=== PATIENT | female | born 1990 | race Two or more races ===

== ENCOUNTER 2017-11-26 01:39 | Inpatient (IN) | payer MEDICAID ==
[2017-11-26] MEDS ORDERED: OXYTOCIN 20 UNIT in LR 1,000 ML IV PRN (02:43)
[2017-11-26] MEDS ORDERED: TERBUTALINE SULFATE 1 MG/ML VIAL IV PRN (02:43)
[2017-11-26] MEDS ORDERED: OLIVE OIL 118 ML BTL MISC PRN (02:43)
[2017-11-26] MEDS ORDERED: LR 1,000 ML IV PRN (02:43)
[2017-11-26] MEDS ORDERED: MISOPROSTOL 200 MCG TAB PR PRN (02:43)
[2017-11-26] MEDS ORDERED: EPSOM SALT 454 GM TP PRN (02:43)
[2017-11-26 03:08] LABS: PLATELET COUNT 128 10^3/uL (150-400)
--- NOTE | 2017-11-26 03:39 | PDGENHP ---
History and Physical - Chief Complaint Home transfer - Prolonged first stage - History of Present Illness Deidra is a 27 yo G1 at 40w2d by JESSICA of 11/24/17 by LMP c/w 20 wk US who arrived as non-urgent transfer early this AM from her home where she has been laboring with her nfl player (Alyssa Car) for the past 48 hrs. They report that her water did rupture grossly (confirmed w nitrazine) at 0300 on 11/24/17. No fevers or chills. Has now been 7cm since 1700 11/25/17 and ultimately transferring for potential augmentation and pain control. Reportedly uncomplicated first , GBS unknown but pt declines antibiotics. She did have an anatomy scan US at 20w1d - posterior placenta no previa, normal anatomy. JESSICA by US 11/29/17. Her TSH was reportedly abnormal at 21 but PNL otherwise normal. Last pap was 01/2015 and had "abnormal cells" with no f/u recommended per pt. Plan has been to repeat pap PP. Pt is a chiropractor herself. Has a h/o anemia. Declined aneuploidy screening. History Information - Allergies/Home Medication List Allergies/Adverse Reactions: No Known Allergies Allergy (Unverified 11/26/17 02:43) I have personally reviewed and updated: family history, medical history, social history, surgical history Past Medical History: Per pt report - Anemia, abnormal pap - Surgical History Reports: no pertinent surgical hx - Social History Smoking Status: Never smoked Alcohol Use: None Drug Use: None Review of Systems Review of Systems: ROS: 10pt was reviewed & negative except for what was stated in HPI & below Physical Exam Physical Exam: Constitutional: no apparent distress, uncomfortable Respiratory: no respiratory distress Skin: normal color Neurologic: AAOx3, CN II-XII Intact Psychiatric: interacting appropriately, not anxious, thought process linear Lab Data & Imaging Review 11/26/17 02:00 WBC 13.88 10^3/uL (3.80-9.50) H 11/26/17 02:00 RBC 3.92 10^6/uL (4.18-5.33) L 11/26/17 02:00 Hgb 11.6 g/dL (12.6-16.3) L 11/26/17 02:00 Hct 34.1 % (38.0-47.0) L 11/26/17 02:00 MCV 87.0 fL (81.5-99.8) 11/26/17 02:00 MCH 29.6 pg (27.9-34.1) 11/26/17 02:00 MCHC 34.0 g/dL (32.4-36.7) 11/26/17 02:00 RDW 13.1 % (11.5-15.2) 11/26/17 02:00 Plt Count 128 10^3/uL (150-400) L 11/26/17 02:00 MPV 12.6 fL (8.7-11.7) H 11/26/17 02:00 Neut % (Auto) 85.2 % (39.3-74.2) H 11/26/17 02:00 Lymph % (Auto) 9.8 % (15.0-45.0) L 11/26/17 02:00 Millard % (Auto) 4.3 % (4.5-13.0) L 11/26/17 02:00 Eos % (Auto) 0.1 % (0.6-7.6) L 11/26/17 02:00 Baso % (Auto) 0.2 % (0.3-1.7) L 11/26/17 02:00 Nucleat RBC Rel Count 0.0 % (0.0-0.2) 11/26/17 02:00 Absolute Neuts (auto) 11.83 10^3/uL (1.70-6.50) H 11/26/17 02:00 Absolute Lymphs (auto) 1.36 10^3/uL (1.00-3.00) 11/26/17 02:00 Absolute Monos (auto) 0.60 10^3/uL (0.30-0.80) 11/26/17 02:00 Absolute Eos (auto) 0.01 10^3/uL (0.03-0.40) L 11/26/17 02:00 Absolute Basos (auto) 0.03 10^3/uL (0.02-0.10) 11/26/17 02:00 Absolute Nucleated RBC 0.00 10^3/uL (0-0.01) 11/26/17 02:00 Immature Gran % 0.4 % (0.0-1.1) 11/26/17 02:00 Immature Gran # 0.05 10^3/uL (0.00-0.10) 11/26/17 02:00 Assessment & Plan Assessment: 27 yo G1 at 40w2d presents with presumed prolonged rupture of membranes now approaching 48 hours. Transferring from home with nfl player due to protracted first stage/arrest of dilation at 7cm. I had a long talk with Deidra and her partner. I recommended that we check and try to rupture that potential forebag as a first step, and also place an IUPC so that we can assess how strong these contractions are and decide whether or not Pitocin would be neccessary. She would like to wait two hours two try to get some sleep before checking and maybe rupturing forebag. She is using nitrous oxide currently for some pain relief. I recommended that we start antibiotics due to her prolonged rupture of membranes to prevent chorioamnionitis. I counseled her that the risk of infection is present and growing the longer she is ruptured and not delivered. Discussed that that infection can have grave consequences for mom and baby. She declines antibiotics. Plan: - Recheck cervix in 2 hrs with AROM of forebag. Suspect she will want to wait another period of time before allowing IUPC. - If inadequate MVU's w/ IUPC then would recommend Pit and I think she'd accept if not changing. - Monitor temperature and s/sx of chorio, pt declines abx for that and for GBS unknown. - Rh positive, Rubella immune. Labor Progress Note Assessment/Plan: Assessment: Plan: Subjective/Intrapartum Course: Objective: 11/26/17 02:00 Patient ABO/Rh O POSITIVE 11/26/17 02:00 - SVE Dilation (cm): 7 Effacement (%): 100 Station: -1 Membranes: SROM (Forebag present on initial exam in hospital by RN) Amniotic Fluid Color: Clear (Minimal fluid seen thus far) - Contraction Pattern Assessment Current Contraction Pattern: Regular - FHR Assessment Vivas FHR (bpm): 130 FHR Pattern Variability: Moderate FHR Category: 2 - AP Antepartum Course:
[2017-11-26] MEDS ORDERED: LIDOCAINE 1% 300 MG/30 ML SDV ONE (06:41)
[2017-11-26] MEDS ORDERED: OLIVE OIL 118 ML BTL ONE (06:41)
[2017-11-26] MEDS ORDERED: AMMONIA AROMATIC 1 EACH AMP IH ONE (06:42)
[2017-11-26] MEDS ORDERED: OXYTOCIN 10 UNIT/ML VIAL ONE (06:42)
[2017-11-26] MEDS ORDERED: TERBUTALINE SULFATE 1 MG/ML VIAL ONE (06:42)
[2017-11-26] MEDS ORDERED: LR 500 ML IV PRN (09:09)
[2017-11-26] MEDS ORDERED: ONDANSETRON 4 MG/2 ML VIAL IVP PRN (09:10)
--- NOTE | 2017-11-26 09:33 | OBPROG ---
Labor Progress Note Assessment/Plan: Assessment: IUP at 40+ wks failed home attempt protracted labor with hx of prolonged ROM >48 hrs unknown GBS and declines abx using nitrous for pain Plan: AROM of forebag (or AROM of bag - prior ROM was confirmed only with +nitrazine) encouraged pitocin for affective labor pattern if it doesn't evolve timely cont po fluids pt aware of IV pain meds and CAR option 11/26/17 09:23 Subjective/Intrapartum Course: Intrapartum 11/26/17 09:33 Pt is managing ctxn pain with nitrous - reports she's had worse ctxns but these seem painful. Disc ROM of ?forebag and pt agrees. disc optimizing effective labor - pain meds reviewed Objective: 11/26/17 02:00 Patient ABO/Rh O POSITIVE 11/26/17 02:00 - SVE Dilation (cm): 4 Effacement (%): 90 Station: -1 Membranes: AROM (of forebag - clear but old blood noted, 09:15), SROM (Forebag present on initial exam in hospital by RN) Amniotic Fluid Color: Clear (Minimal fluid seen thus far) - Contraction Pattern Assessment Current Contraction Pattern: Regular, Irregular (q 3-8 min prior to ROM) - FHR Assessment Vivas FHR (bpm): 120 FHR Pattern Variability: Moderate FHR Category: 1 - AP Antepartum Course: Antepartum Oxytocin Orders Assessment - Pre-Induction/Augmentation Assessment Gestational Age: 40 week(s) and 2 day(s) ICD10 Worksheet Patient Problems: Problems Problem Status Onset PROM (premature rupture of membranes) Acute Prolonged first stage of labor Acute Prolonged rupture of membranes Acute
[2017-11-26] MEDS ORDERED: BUPIVACAINE 0.25% 30 ML SDV ONE (11:43)
[2017-11-26] MEDS ORDERED: PHENYLEPHRINE HCL 100 MCG/ML SYR ONE (11:43)
[2017-11-26] MEDS ORDERED: fentaNYL 2MCG/ML/BUP 0.1% RTU 100 ML EP SCH ×2 (12:00→13:00)
[2017-11-26] MEDS ORDERED: fentaNYL 200 MCG, BUPIVACAINE 0.5% 20 ML in NS 100 ML EP SCH (12:00)
[2017-11-26] MEDS ORDERED: PHENYLEPHRINE HCL 100 MCG/ML SYR IVP PRN (12:41)
[2017-11-26] MEDS ORDERED: NALOXONE HCL 0.4 MG/ML INJ IVP PRN (12:41)
--- NOTE | 2017-11-26 12:46 | PDANEPAE ---
ANE History of Present Illness CAR for active labor ANE Past Medical History - Pulmonary History Hx Sleep Apnea: No ANE Review of Systems Review of systems is: negative Review of Systems: - Exercise capacity Exercise capacity: >=4 METS ANE Patient History - Allergies Allergies/Adverse Reactions: No Known Allergies Allergy (Unverified 11/26/17 02:43) - Home Medications Home medications: home medication list seen and reviewed - NPO status NPO Since - Solids (Date): 11/26/17 NPO Since - Solids (Time): 10:00 - Anes Hx Anes Hx: no prior problems - Smoking Hx Smoking Status: Never smoked - Alcohol Use Alcohol Use: None - Family Anes Hx Family Anes Hx: none ANE Labs/Vital Signs - Labs Result Diagrams: 11/26/17 02:00 - Vital Signs Height: 157.48 cm Weight: 68.039 kg ANE Physical Exam - Airway Neck exam: FROM Mallampati Score: Class 1 Mouth exam: normal dental/mouth exam - Pulmonary Pulmonary: no respiratory distress - Cardiovascular Cardiovascular: regular rate and rhythym - ASA Status ASA Status: II ANE Anesthesia Plan Anesthesia Plan: epidural
[2017-11-26] MEDS ORDERED: LR 500 ML IV SCH (13:00)
--- NOTE | 2017-11-26 13:28 | OBPROG ---
Labor Progress Note Assessment/Plan: Assessment: IUP at 40+ wks failed home attempt protracted labor with hx of prolonged ROM >48 hrs, AROM of forebag unknown GBS and declines abx CAR and comf now Plan: will begin pitocin now. encouraged pt to consider abx 11/26/17 09:23 11/26/17 13:24 Subjective/Intrapartum Course: Intrapartum 11/26/17 09:33 Pt is managing ctxn pain with nitrous - reports she's had worse ctxns but these seem painful. Disc ROM of ?forebag and pt agrees. disc optimizing effective labor - pain meds reviewed 11/26/17 13:27 happy with CAR. Will try to rest. ok with pit now as cx still not changed Objective: 11/26/17 02:00 Patient ABO/Rh O POSITIVE 11/26/17 02:00 - SVE Dilation (cm): 4 Effacement (%): 90 Station: -1 Membranes: AROM (of forebag - clear but old blood noted, 09:15), SROM (Forebag present on initial exam in hospital by RN) Amniotic Fluid Color: Clear (Minimal fluid seen thus far) - Contraction Pattern Assessment Current Contraction Pattern: Regular (3-5 min apart after CAR), Irregular (q 3- 8 min prior to ROM) - FHR Assessment Vivas FHR (bpm): 120 FHR Pattern Variability: Moderate FHR Category: 1 - Procedures Non-surgical Procedures: Amniotomy - AP Antepartum Course: Antepartum Oxytocin Orders Assessment - Pre-Induction/Augmentation Assessment Gestational Age: 40 week(s) and 2 day(s) ICD10 Worksheet Patient Problems: Problems Problem Status Onset PROM (premature rupture of membranes) Acute Prolonged first stage of labor Acute Prolonged rupture of membranes Acute
[2017-11-26] MEDS: OXYTOCIN 30 UNIT in NS 500 ML IV SCH (13:45)
[2017-11-26] MEDS ORDERED: ACETAMINOPHEN 500 MG TAB PO ONE (19:53)
[2017-11-26] MEDS ORDERED: AMPICILLIN SODIUM 1 GM in NS 50 ML IV SCH (20:00)
--- NOTE | 2017-11-26 20:01 | OBPROG ---
Labor Progress Note Assessment/Plan: Assessment: IUP at 40+ wks failed home attempt protracted labor with hx of prolonged ROM >48 hrs, AROM of forebag unknown GBS and declines abx - NOW PT AGREES TO START AMP WITH CONCERN WITH LOW GRADE TEMP CAR and comf now - RECENTLY HAD TO REBOLUS Plan: low grade temp - will give tylenol. disc potential that chorio is developing, reassuring variability and baseline stable. Disc if temp rises again, will need to declare chorio and begin combined abx. disc increased risk of PPH with protracted labor and now developing temp 11/26/17 09:23 11/26/17 13:24 11/26/17 19:56 Subjective/Intrapartum Course: Intrapartum 11/26/17 09:33 Pt is managing ctxn pain with nitrous - reports she's had worse ctxns but these seem painful. Disc ROM of ?forebag and pt agrees. disc optimizing effective labor - pain meds reviewed 11/26/17 13:27 happy with CAR. Will try to rest. ok with pit now as cx still not changed 11/26/17 20:00 Pt doing better with rebolused CAR. cx now 9 cm/100/0 - feels transverse. using peanut ball and trying to rotate position. low grade temp 37.9 - giving 1000 gm tyl Objective: 11/26/17 02:00 Patient ABO/Rh O POSITIVE 11/26/17 02:00 - SVE Dilation (cm): 9 Effacement (%): 100 Station: 0 Membranes: AROM (of forebag - clear but old blood noted, 09:15), SROM (Forebag present on initial exam in hospital by RN) Amniotic Fluid Color: Clear (Minimal fluid seen thus far) - Contraction Pattern Assessment Current Contraction Pattern: Regular (q2-3 min on 11 mu/min pitocin), Irregular (q 3-8 min prior to ROM) - FHR Assessment Vivas FHR (bpm): 130 FHR Pattern Variability: Moderate FHR Category: 1 - Procedures Non-surgical Procedures: Amniotomy - AP Antepartum Course: Antepartum Oxytocin Orders Assessment - Pre-Induction/Augmentation Assessment Gestational Age: 40 week(s) and 2 day(s) ICD10 Worksheet Patient Problems: Problems Problem Status Onset Prolonged first stage of labor Acute Prolonged rupture of membranes Acute PROM (premature rupture of membranes) Acute
[2017-11-26] MEDS ORDERED: AMPICILLIN SODIUM 2 GM in NS 100 ML IV ONE (20:30)
[2017-11-27] MEDS ORDERED: AMPICILLIN SODIUM 1 GM in NS 100 ML IV SCH
[2017-11-27] MEDS ORDERED: AMPICILLIN SODIUM 1 GM in STERILE WATER INJ 15 ML IV SCH (00:30)
[2017-11-27] MEDS: OXYTOCIN 30 UNIT in NS 500 ML IV SCH (02:26)
[2017-11-27] MEDS ORDERED: ACETAMINOPHEN 325 MG TAB PO PRN (02:43)
--- NOTE | 2017-11-27 02:48 | OBDEL ---
Info Type: Vaginal Presentation at Delivery: Vertex L&D Analgesia/Anesthesia Type: Epidural GBS+: No (unknown status) Antibiotic Used for + GBS: Ampicillin (pt advised to do abx due to suspected prolonged ROM, declined until low grade fever, got two doses) Intrapartum Medications: Generic Name Dose Route Start Last Admin Trade Name Freq PRN Reason Stop Dose Admin Oxytocin 30 unit/ Sodium 503 mls @ 0 mls/hr 11/26/17 09:15 11/27/17 02:26 Chloride IV 05/25/18 09:14 500 mls CONT DILLON Administration Protocol Per Protocol Lactated Ringer's 500 mls @ 0 mls/hr 11/26/17 13:00 11/26/17 11:30 Lr IV 05/25/18 12:59 500 mls CONT DILLON Administration As Directed Ampicillin Sodium 1 gm/ 15 mls @ 60 mls/hr 11/27/17 00:30 11/27/17 00:20 Sterile Water IV 12/27/17 00:29 15 mls Q6H DILLON Administration Discontinued Medications Generic Name Dose Route Start Last Admin Trade Name Chrisq PRN Reason Stop Dose Admin Acetaminophen 1,000 mg 11/26/17 19:53 11/26/17 20:05 Tylenol PO 11/26/17 19:54 1,000 mg ONCE ONE Administration Lactated Ringer's 1,000 mls @ 0 mls/hr 11/26/17 02:43 11/26/17 12:50 Lr IV 11/27/17 02:42 1,000 mls PRN PRN Administration SEE PROTOCOL CONDITIONS Protocol Per Protocol Ampicillin Sodium 2 gm/ Sodium 110 mls @ 220 mls/hr 11/26/17 20:30 11/26/17 20:13 Chloride IV 11/26/17 20:59 110 mls ONCE ONE Administration - Hospital Course Intrapartum: Intrapartum 11/26/17 09:33 Pt is managing ctxn pain with nitrous - reports she's had worse ctxns but these seem painful. Disc ROM of ?forebag and pt agrees. disc optimizing effective labor - pain meds reviewed 11/26/17 13:27 happy with CAR. Will try to rest. ok with pit now as cx still not changed 11/26/17 20:00 Pt doing better with rebolused CAR. cx now 9 cm/100/0 - feels transverse. using peanut ball and trying to rotate position. low grade temp 37.9 - giving 1000 gm tyl Indications for Delivery: Spontaneous Labor Vaginal Delivery - Delivery Provider Delivery Physician/CNM: Francia Arita - Labor and Delivery Onset of Contractions Date: 11/23/17 (still 4 cm at 8am on 11/26) Onset of Contractions Time: 17:00 (real intensity after AROM of forebag approx 9 :15 ) Onset of Contractions Type: Spontaneous Rupture of Membranes Date: 11/24/17 Rupture of Membranes Time: 03:55 (AROM of forebag 9:15 on 11/26) Rupture of Membranes Type: Spontaneous Amniotic Fluid Color: Clear (Minimal fluid seen thus far - at AROM - brownish with fluid) Dilation Complete Date: 11/26/17 Dilation Complete Time: 23:24 Placenta Delivery Date: 11/27/17 Placenta Delivery Time: 02:25 Total Hours of Labor: 81 Non-surgical Procedures: Amniotomy Laceration: Other (Specify) (none) Vaginal Sponge Count Correct: Yes Vaginal Needle Count Correct: Yes Vaginal Sweep Performed: No EBL: 300 Delivery Events: None ( assisted with delivery) - Medications Labor Augmentation/Induction Methods Used: Pitocin Labor Augmentation/Induction Indication: Other (Specify) (protracted labor) Data JESSICA: 11/24/17 Gestational Age: 40 week(s) and 3 day(s) Vivas Delivery Date: 11/27/17 Delivery Time: 02:18 Sex of : Female Score (1 Min): 8 Score (5 Min): 9 ICD10 Worksheet Patient Problems: Problems Problem Status Onset Prolonged rupture of membranes Acute (spontaneous vaginal delivery) Acute
[2017-11-27] MEDS: IBUPROFEN 600 MG TAB PO PRN ×4 (02:53→23:21)
[2017-11-27 05:45] VITALS: RESP 16
--- NOTE | 2017-11-27 13:16 | OBPP ---
Progress Note Assessment/Plan: A/P: PPD1 s/p - Prolonged rupture of membranes and GBS unknown. Peds would prefer to monitor baby for 48 hrs. Parents are comfortable with that. Pain well controlled, no other acute issues. Routine cares. Will check TSH tomorrow AM as reportedly had abnormal value to start - never treated. Likely dc home Mon/Tues. Subjective/ Course: Deidra is doing very well - ultimately very happy with how things went. Pain is minimal, as is lochia. going well. No other acute issues. Objective: 11/26/17 02:00 Patient ABO/Rh O POSITIVE 11/26/17 02:00 Temp Pulse Resp BP Pulse Ox 36.1 C 74 16 103/65 95 11/27/17 05:15 11/27/17 05:15 11/27/17 05:15 11/27/17 05:15 11/27/17 05:15 Uterine Position/Fundal Height: At Umbilicus Uterine Tone: Firm
[2017-11-28] MEDS: IBUPROFEN 600 MG TAB PO PRN ×3 (06:13→19:08)
--- NOTE | 2017-11-28 09:31 | OBPP ---
Progress Note Assessment/Plan: Assessment: Post day #2 Stable afebrile Wants to go home Plan: 11/28/17 09:26 Continue management 11/28/17 09:31 Continue current management Discharge home tomorrow Subjective/ Course: Deidra is doing very well - ultimately very happy with how things went. Pain is minimal, as is lochia. going well. No other acute issues. Objective: 11/26/17 02:00 Patient ABO/Rh O POSITIVE 11/26/17 02:00 Temp Pulse Resp BP Pulse Ox 36.8 C 60 16 122/75 H 96 11/27/17 23:00 11/27/17 23:00 11/27/17 23:00 11/27/17 23:00 11/27/17 23:00 Uterine Position/Fundal Height: Umbilicus -2 Uterine Tone: Firm Physical Exam - Physical Exam Respiratory: chest non-tender, lungs clear Cardiac/Chest: normal peripheral pulses, regular rate, rhythm Extremities: normal range of motion, non-tender Skin: normal color, warm/dry Neuro/Psych: no motor/sensory deficits, alert, normal mood/affect, oriented x 3
[2017-11-28] MEDS ORDERED: DOCUSATE SODIUM 100 MG CAP PO SCH (09:45)
[2017-11-28] MEDS: DOCUSATE SODIUM 100 MG CAP PO SCH ×2 (13:03→20:56)
[2017-11-28 20:08] VITALS: O2SAT 95
[2017-11-29] MEDS: IBUPROFEN 600 MG TAB PO PRN (06:05)
--- NOTE | 2017-11-29 07:20 | OBPP ---
Progress Note Assessment/Plan: Assessment: Post day #3 Stable afebrile Wants to go home today Plan: 11/28/17 09:26 Continue management 11/28/17 09:31 Continue current management Discharge home tomorrow 11/29/17 07:18 Discharge home RX written Follow up in office for follow up 4 and 6 weeks Return precautions given 11/29/17 07:20 Subjective/ Course: Deidra is doing very well - ultimately very happy with how things went. Pain is minimal, as is lochia. going well. No other acute issues. 11/29/17 09:26 Doing well tolerating diet, ambulating and patient is ready to go home Objective: 11/26/17 02:00 Patient ABO/Rh O POSITIVE 11/26/17 02:00 Temp Pulse Resp BP Pulse Ox 36.8 C 63 16 122/72 H 95 11/28/17 20:00 11/28/17 20:00 11/28/17 20:00 11/28/17 20:00 11/28/17 20:00 Uterine Position/Fundal Height: Umbilicus -2 Uterine Tone: Firm Physical Exam - Physical Exam Respiratory: chest non-tender, lungs clear, normal breath sounds Abdomen: normal bowel sounds, non-tender Skin: normal color, warm/dry, cyanosis Neuro/Psych: no motor/sensory deficits, alert, normal mood/affect, oriented x 3
--- NOTE | 2017-11-29 09:29 | OBGCSDC ---
General Delivery Information - General Info : 1 Para: 1 Abortions: 0 Type: Vaginal L&D Analgesia/Anesthesia Type: Epidural Admission Date: 11/26/17 Labs: Patient ABO/Rh O POSITIVE 11/26/17 02:00 Hct 34.1 % (38.0-47.0) L 11/26/17 02:00 - Hospital Course Antepartum: Antepartum Intrapartum: Intrapartum 11/26/17 09:33 Pt is managing ctxn pain with nitrous - reports she's had worse ctxns but these seem painful. Disc ROM of ?forebag and pt agrees. disc optimizing effective labor - pain meds reviewed 11/26/17 13:27 happy with CAR. Will try to rest. ok with pit now as cx still not changed 11/26/17 20:00 Pt doing better with rebolused CAR. cx now 9 cm/100/0 - feels transverse. using peanut ball and trying to rotate position. low grade temp 37.9 - giving 1000 gm tyl : Deidra is doing very well - ultimately very happy with how things went. Pain is minimal, as is lochia. going well. No other acute issues. 11/29/17 09:26 Doing well tolerating diet, ambulating and patient is ready to go home Vaginal - Delivery Provider Delivery Physician/CNM: Francia Arita - Diagnosis Labor: Spontaneous Rupture of Membranes Type: Spontaneous Amniotic Fluid Color: Clear (Minimal fluid seen thus far - at AROM - brownish with fluid) Laceration: Other (Specify) (none) Delivery Events: None ( assisted with delivery) - Procedures Non-surgical Procedures: Amniotomy - Delivery Non-surgical Procedures: Amniotomy EBL: 300 Data JESSICA: 11/24/17 Gestational Age: 40 week(s) and 5 day(s) Vivas Delivery Date: 11/27/17 Delivery Time: 02:18 Sex of Infant: Female Score (1 Min): 8 Score (5 Min): 9 Discharge Information - Discharge Information Prescriptions: Ibuprofen [Motrin (*)] 600 mg PO Q6HRS PRN #30 tab PRN Reason: post , inflammation Docusate Sodium [Colace 100 MG (*)] 100 mg PO BID #30 cap Condition: Good Instruction/Follow Up: Four Weeks, Six Weeks (4 weeks well woman check and 6 weeks post check)
[2017-11-29 09:49] VITALS: BP 146/81; PULSE 57; TEMP 98.4
[2017-11-29] MEDS: DOCUSATE SODIUM 100 MG CAP PO SCH (12:43)
== END 2017-11-29 12:44 | disposition home or self-care (01) | DRG 775 ==
LOC: FLD 01:39 → FOB 11-27 05:15
PROVIDERS: ADMIT Obstetrics & Gynecology; ATTEND Obstetrics & Gynecology
PROC: 10E0XZZ Delivery of Products of Conception, External Approach (ICD-10-PCS; principal; 2017-11-27)
PROC: 10907ZC Drainage of Amniotic Fluid, Therapeutic from Products of Conception, Via Natural or Artificial Opening (ICD-10-PCS; principal; 2017-11-27)
DX: O62.1 Secondary uterine inertia (principal); Z37.0 Single live birth; Z3A.40 40 weeks gestation of pregnancy
CPT/HCPCS: J0290; J2370; J2590; J3010; J3105

== ENCOUNTER 2018-12-12 19:32 | Inpatient (IN) | payer MEDICAID ==
[2018-12-12] MEDS ORDERED: LIDOCAINE 1% 300 MG/30 ML SDV ONE (20:01)
[2018-12-12] MEDS ORDERED: AMMONIA AROMATIC 1 EACH AMP IH ONE (20:01)
[2018-12-12] MEDS ORDERED: OLIVE OIL 118 ML BTL ONE (20:01)
[2018-12-12] MEDS ORDERED: OXYTOCIN 10 UNIT/ML VIAL ONE (20:02)
[2018-12-12] MEDS ORDERED: MISOPROSTOL 200 MCG TAB ONE (20:02)
[2018-12-12] MEDS ORDERED: OLIVE OIL 118 ML BTL MISC PRN (20:23)
[2018-12-12] MEDS ORDERED: IBUPROFEN 600 MG TAB PO PRN (20:23)
[2018-12-12] MEDS ORDERED: MISOPROSTOL 200 MCG TAB PR PRN (20:23)
[2018-12-12] MEDS ORDERED: LIDOCAINE 1% 300 MG/30 ML SDV SC PRN (20:23)
[2018-12-12] MEDS ORDERED: LR 1,000 ML IV PRN (20:23)
[2018-12-12] MEDS ORDERED: EPSOM SALT 454 GM TP PRN (20:23)
[2018-12-12] MEDS ORDERED: OXYTOCIN/RINGERS LACTATE 1,000 ML IV PRN (20:23)
[2018-12-12 20:43] LABS: PLATELET COUNT 148 10^3/uL (150-400)
--- NOTE | 2018-12-12 20:46 | PDGENHP ---
History and Physical History and Physical: Care: [facility] HPI: Roseann began having regular contractions apprx 1500; paged at 5 pm reporting SROM with clear fluid and bloody show. Contractions every 10 minutes. Reviewed when to come in. Paged at 7:10 reporting contractions more intense and heading into the hospital Patient is a 28 yo G 2 P 1 @ 40.2 weeks that presents to L&D with complaints of contractions and ROM EDC: 12/10/18 which is based on a 6 week Ultrasound. She was her 4 month old baby at the time and had not yet had a menses Her is complicated by: short interval pregnancies Review of Systems: Constitutional: Denies any fever, chills, or fatigue HEENT: denies any visual changes, difficulty swallowing, hearing loss Cardiovascular: Denies any chest pain, palpitations, leg swelling Respiratory: denies any cough, wheezing, or shortness of breathe GI: Denies any nausea, vomiting, diarrhea, constipation : denies any dysuria, urgency, frequency, vaginal bleeding Musculoskeletal: denies any muscle or bone pain Skin: denies any rashes Neuro: denies any headache, seizures, lightheadedness, dizziness, or loss of consciousness Psychiatric: denies any depression, anxiety, or SI/HI thoughts HISTORY: Previous OB history: prolonged labor. Transferred into the hospital after planned home . Had AROM and then progressed normally; 2 hours of pushing. Previous mild anemia Past medical history: IBS; unable to eat beef Past surgical history: none Social: Denies any alcohol, tobacco, or drug use. Family history: Not relevant Medications: PNV Allergies : NKDA LABS: Rh: O+ ABS: Neg Rubella: Non Immune HbsAg: NR HIV: NR VDRL: NR 1hr: 114 GC: Neg Chlamydia: Neg Pap: Normal 01/10/18 GBS: neg BMI: (prepreg) 21 PHYSICAL EXAM: Constitutional: WN, A&Ox3 HEENT: normocephalic atraumatic, supple Skin: Warm, dry, intact Heart: RRR, no murmur Chest: CTA-B Abdomen: Soft, nontender, gravid SVE: 6 Extremities: edema, negative homans sign Neuro: grossly normal Psych: normal affect assessment: FHT baseline 120 +accels, no decels, moderate variability Contractions: toco q 2.5 Assessment: 1) 28 yo G 2 P 1 with IUP@ 40.2 2) active labor 3) GBS neg 4) Cat 1 FHR tracing Plan: 1) Admit to L&D 2) Expectant managements 3) Anticipate
[2018-12-12] MEDS ORDERED: HYDROCORTISONE 0.5% CREAM TP PRN (23:28)
--- NOTE | 2018-12-12 23:32 | OBDEL ---
Info Type: Vaginal Presentation at Delivery: Vertex L&D Analgesia/Anesthesia Type: Nitrous GBS+: No Intrapartum Medications: Generic Name Dose Route Start Last Admin Trade Name Freq PRN Reason Stop Dose Admin [place] Oil 118 ml 12/12/18 20:23 12/12/18 22:54 Sweet Oil MISC 06/10/19 20:22 1 btl ONCE PRN Administration perineal massage Indications for Delivery: Spontaneous Labor Vaginal Delivery - Delivery Provider Delivery Physician/CNM: Christy Martell - Labor and Delivery Onset of Contractions Date: 12/12/18 Onset of Contractions Time: 18:00 Onset of Contractions Type: Spontaneous Rupture of Membranes Date: 12/12/18 Rupture of Membranes Time: 17:00 Rupture of Membranes Type: Spontaneous Amniotic Fluid Color: Clear Dilation Complete Date: 12/12/18 Dilation Complete Time: 22:22 Placenta Delivery Date: 12/12/18 Placenta Delivery Time: 23:08 Total Hours of Labor: 5 Laceration: 1st Degree (At the introitus; nonbleeding and well approximated) Vaginal Sponge Count Correct: Yes Vaginal Needle Count Correct: Yes Vaginal Sweep Performed: Yes Delivery Events: Other (Specify) (nuchal hand) [place] Data JESSICA: 12/10/18 Gestational Age: 40 week(s) and 2 day(s) Vivas Delivery Date: 12/12/18 Delivery Time: 22:59 Sex of : Female Score (1 Min): 8 Score (5 Min): 8 ICD10 Worksheet Patient Problems: Problems Problem Status Onset Encounter for full-term uncomplicated delivery Acute First degree perineal laceration during delivery Acute - ICD10 Problem Qualifiers (1) Encounter for full-term uncomplicated delivery (2) First degree perineal laceration during delivery
[2018-12-12] MEDS: ACETAMINOPHEN 325 MG TAB PO PRN (23:49)
[2018-12-12] MEDS: IBUPROFEN 600 MG TAB PO SCH (23:50)
[2018-12-13] MEDS: ACETAMINOPHEN 325 MG TAB PO PRN ×4 (05:46→23:23)
[2018-12-13] MEDS: IBUPROFEN 600 MG TAB PO SCH ×4 (05:46→23:23)
[2018-12-13] MEDS: DOCUSATE SODIUM 100 MG CAP PO PRN ×2 (08:20→23:22)
--- NOTE | 2018-12-13 17:22 | OBPROG ---
Labor Progress Note Assessment/Plan: this note was entered in error Subjective/Intrapartum Course: 12/13/18 17:17 Pt doing well, was able to rest some this morning. She reports having some bleeding around 12pm, minimal now. she denies any pain. She is ambulating and voiding without difficulty. FOB at BS and supportive. She is without difficulty. Objective: 12/12/18 20:15 Patient ABO/Rh O POSITIVE 12/12/18 20:15 Temp Pulse Resp BP Pulse Ox 36.6 C 84 16 123/74 H 99 12/13/18 16:00 12/13/18 16:00 12/13/18 16:00 12/13/18 16:00 12/13/18 16:00 - SVE Amniotic Fluid Color: Clear Dilation Complete Date: 12/12/18 Dilation Complete Time: 22:22 Oxytocin Orders Assessment - Pre-Induction/Augmentation Assessment Gestational Age: 40 week(s) and 2 day(s) ICD10 Worksheet Patient Problems: Problems Problem Status Onset Encounter for full-term uncomplicated delivery Acute First degree perineal laceration during delivery Acute
--- NOTE | 2018-12-13 17:24 | OBPP ---
Progress Note Assessment/Plan: Assessment: 28yo s/p PPD#1 Plan: routine PP care support PRN ambulate/hydrate plan to d/c home tomorrow Subjective/ Course: 12/13/18 16:00 Pt doing well, was able to rest some this morning. She reports having some bleeding around 12pm, minimal now. she denies any pain. She is ambulating and voiding without difficulty. FOB at BS and supportive. She is without difficulty. Objective: 12/12/18 20:15 Patient ABO/Rh O POSITIVE 12/12/18 20:15 Temp Pulse Resp BP Pulse Ox 36.6 C 84 16 123/74 H 99 12/13/18 16:00 12/13/18 16:00 12/13/18 16:00 12/13/18 16:00 12/13/18 16:00 Uterine Position/Fundal Height: Umbilicus -3, Midline Uterine Tone: Firm
[2018-12-14] MEDS: IBUPROFEN 600 MG TAB PO SCH ×2 (07:12→15:10)
[2018-12-14 08:25] VITALS: BP 115/80
[2018-12-14] MEDS ORDERED: FERROUS SULFATE 325 MG TAB PO SCH (10:30)
--- NOTE | 2018-12-14 11:04 | OBGCSDC ---
General Delivery Information - General Info : 2 Para: 2 Abortions: 0 Type: Vaginal L&D Analgesia/Anesthesia Type: Nitrous Admission Date: 12/12/18 Labs: Patient ABO/Rh O POSITIVE 12/12/18 20:15 Hct 34.1 % (38.0-47.0) L 12/12/18 20:15 - Hospital Course Intrapartum: 12/13/18 17:17 Pt doing well, was able to rest some this morning. She reports having some bleeding around 12pm, minimal now. she denies any pain. She is ambulating and voiding without difficulty. FOB at BS and supportive. She is without difficulty. : 12/13/18 16:00 Pt doing well, was able to rest some this morning. She reports having some bleeding around 12pm, minimal now. she denies any pain. She is ambulating and voiding without difficulty. FOB at BS and supportive. She is without difficulty. 12/14/18 11:02 S) Pt doing well, reports min pain and bleeding. she is ambulating and voiding without difficulty. She is . She desires discharge home today. O) VSS, afebrile constitutional: WNWF, A&Ox3 HEENT: normocephalic, atraumatic, supple Heart: RRR, No murmur Chest: CTA-B Abdomen: Soft, nontender Uterus: Firm at U-2 Lochia: Minimal rubra Perineum: Intact, healing well Extremities: Trace edema, and negative Vinay's sign Neuro: Grossly normal A) 28 year-old P 2 S/P PPD#2 P) Discharge home today Continue Pelvic rest x6wks Discussed danger signs (infection, preeclampsia, depression, heavy bleeding, etc) RTO in 2/4/6 weeks Vaginal - Delivery Provider Delivery Physician/CNM: Christy Martell - Diagnosis Labor: Spontaneous Rupture of Membranes Type: Spontaneous Amniotic Fluid Color: Clear Laceration: 1st Degree (At the introitus; nonbleeding and well approximated) Delivery Events: Other (Specify) (nuchal hand) [place] Data JESSICA: 12/10/18 Gestational Age: 40 week(s) and 4 day(s) Vivas Delivery Date: 12/12/18 Delivery Time: 22:59 Sex of Infant: Female Weight (gm): 3385 g Score (1 Min): 8 Score (5 Min): 8
== END 2018-12-14 15:00 | disposition home or self-care (01) | DRG 560 ==
LOC: FLD 19:32 → FOB 12-13 00:54
PROVIDERS: ADMIT Advanced Practice Midwife; ATTEND Advanced Practice Midwife
PROC: 10E0XZZ Delivery of Products of Conception, External Approach (ICD-10-PCS; principal; 2018-12-12)
DX: O70.0 First degree perineal laceration during delivery (principal); Z37.0 Single live birth; Z3A.40 40 weeks gestation of pregnancy
CPT/HCPCS: J2590